=== PATIENT | female | born 1960 | race Caucasian/White ===

== ENCOUNTER → 2017-05-05 | Outpatient (CLI) | payer OTHER ==
[~2017-05-05] MED LIST: CLARITIN-D 24 H1 TAB PO; HYDROCODONE-AP1 EAC6 PO; NORCO 5-325 TA1 EACH PO; PREVACID15 MG PO; VICODIN 5-5001 EACH PO; ZOFRAN ODT4 MG PO
== END ==
LOC: M.RAD 12:54
DX: Z12.31 Encounter for screening mammogram for malignant neoplasm of breast (principal)

== ENCOUNTER → 2018-06-08 | Outpatient (CLI) | payer OTHER | LOC: M.CT 14:11 | DX: Z13.6 Encounter for screening for cardiovascular disorders (principal) ==

== ENCOUNTER → 2018-06-08 | Outpatient (CLI) | payer OTHER | LOC: M.RAD 05-18 08:29 | DX: Z12.31 Encounter for screening mammogram for malignant neoplasm of breast (principal) ==

== ENCOUNTER 2019-04-24 19:40 | Emergency (ER) | payer OTHER ==
[~2019-04-24] VITALS: Ht 162.6 cm; Wt 99.8 kg
[2019-04-24 19:48] VITALS: BP 166/66
[2019-04-24] MEDS ORDERED: CYCLOBENZAPRINE5 MG PO (20:00)
[2019-04-24] MEDS ORDERED: TYLENOL WITH CO1 TA1 PO (20:00)
== END 2019-04-24 20:15 | disposition home or self-care (01) ==
LOC: M.ERS 19:40
DX: M54.42 Lumbago with sciatica, left side (principal); N80.9 Endometriosis, unspecified; Z88.6 Allergy status to analgesic agent; Z88.8 Allergy status to other drugs, medicaments and biological substances

== ENCOUNTER → 2019-08-30 | Outpatient (CLI) | payer OTHER | LOC: M.RAD 13:31 | DX: Z12.31 Encounter for screening mammogram for malignant neoplasm of breast (principal) ==

== ENCOUNTER 2019-12-03 16:27 | Emergency (ER) | payer OTHER ==
[~2019-12-03] VITALS: Ht 162.6 cm; Wt 98.0 kg
[~2019-12-03 16:27] MED LIST changes: +CYCLOBENZAPRINE5 MG PO; +TYLENOL WITH CO1 TA1 PO
[2019-12-03] MEDS ORDERED: OMEPRAZOLE 20 M20 M1 PO (16:40)
[2019-12-03] MEDS ORDERED: STOOL SOFTENER100 M1 PO (16:40)
[2019-12-03] MEDS ORDERED: FIBER0.4 GM PO (16:40)
[2019-12-03] MEDS ORDERED: METAMUCIL1 EAC1 PO (16:41)
[2019-12-03] MEDS ORDERED: NORCO 5-325 TA1 EAC2 PO (17:58)
[2019-12-03 18:23] VITALS: BP 178/76
== END 2019-12-03 18:23 | disposition home or self-care (01) ==
LOC: M.ERS 16:27
DX: M25.572 Pain in left ankle and joints of left foot (principal); N80.9 Endometriosis, unspecified; Z88.6 Allergy status to analgesic agent; Z88.8 Allergy status to other drugs, medicaments and biological substances

== ENCOUNTER → 2020-10-09 | Outpatient (CLI) | payer OTHER ==
[~2020-10-09] MED LIST changes: +FIBER0.4 GM PO; +METAMUCIL1 EAC1 PO; +NORCO 5-325 TA1 EAC2 PO; +OMEPRAZOLE 20 M20 M1 PO; +STOOL SOFTENER100 M1 PO
== END ==
LOC: M.RAD 13:30
PROVIDERS: ATTEND Nurse Practitioner Family
DX: Z12.31 Encounter for screening mammogram for malignant neoplasm of breast (principal)